=== PATIENT | female | born 1965 | race American Indian/Alaskan Native ===

== ENCOUNTER 2018-06-06 19:06 | Emergency (ER) | payer MEDICAID, OTHER ==
[2018-06-06 19:20] VITALS: BMI 38.4
[2018-06-06 19:21] VITALS: TEMP 97.9; O2SAT 98
--- NOTE | 2018-06-06 19:51 | ED PDOC ---
Arrival/HPI - General Chief Complaint: Upper Extremity Problem/Injury Time Seen by Provider: 06/06/18 19:20 Historian: Patient - History of Present Illness Narrative History of Present Illness (Text): 06/06/18 19:51 53 year old female, with no significant past medical history, presents to emergency department complaining of right shoulder discomfort that began earlier today. Patient states that the shoulder hurts when she raises her arm or moves at the shoulder. She reports she may have slept awkwardly on the affected area. Patient denies any blunt trauma to shoulder or any other complaints. Time/Duration: Other (earlier today ) Symptom Onset: Gradual Symptom Course: Unchanged Activities at Onset: Light Context: Home Past Medical History - Provider Review Nursing Documentation Reviewed: Yes - Infectious Disease Hx of Infectious Diseases: None - Tetanus Immunization Tetanus Immunization: Unknown - Past Medical History Past Medical History: No Previous - Cardiac Hx Peripheral Vascular Disease: No - Pulmonary Hx Respiratory Disorders: No - Neurological Hx Dizziness: Yes (Fell april 2014) - Renal Hx Renal Failure: No - Musculoskeletal/Rheumatological Hx Falls: Yes - Gastrointestinal Hx Vomiting: Yes (FOOD POISONING) - Genitourinary/Gynecological Hx Urinary Tract Infection: No - Psychiatric Hx Psychophysiologic Disorder: Yes Hx Anxiety: Yes Hx Depression: No Hx Emotional Abuse: No Hx Hallucinations: No Hx Panic Disorder: No Hx Post Traumatic Stress Disorder: No Hx Psychosis: No Hx Physical Abuse: No Hx Schizophrenia: No Hx Sexual Abuse: No Hx Substance Use: No - Surgical History Hx Section: Yes (x 2) Hx Orthopedic Surgery: Yes (LEFT KNEE, RIGHT FOOT) - Anesthesia Hx Anesthesia: Yes Hx Anesthesia Reactions: No Hx Malignant Hyperthermia: No - Suicidal Assessment Feels Threatened In Home Enviroment: No Family/Social History - Physician Review Nursing Documentation Reviewed: Yes Family/Social History: Unknown Family HX Smoking Status: Never Smoked Hx Alcohol Use: Yes Hx Substance Use: No Hx Substance Use Treatment: No Allergies/Home Meds Allergies/Adverse Reactions: Allergies amoxicillin Allergy (Verified 06/06/18 19:20) DIARRHEA Review of Systems - Physician Review All systems were reviewed & negative as marked: Yes - Review of Systems Constitutional: absent: Fevers Respiratory: absent: SOB, Cough Cardiovascular: absent: Chest Pain Gastrointestinal: absent: Abdominal Pain, Nausea, Vomiting Genitourinary Female: absent: Urine Output Changes Musculoskeletal: Other (right shoulder discomfort ). absent: Back Pain, Neck Pain Skin: absent: Rash Neurological: absent: Headache Physical Exam Vital Signs Reviewed: Yes Vital Signs Temp Pulse Resp BP Pulse Ox 06/06/18 19:21 97.9 F 71 18 169/81 H 98 Temperature: Afebrile Blood Pressure: Normal Pulse: Regular Respiratory Rate: Normal Appearance: Positive for: Well-Appearing, Non-Toxic, Comfortable Pain Distress: None Mental Status: Positive for: Alert and Oriented X 3 - Systems Exam Head: Present: Atraumatic, Normocephalic Pupils: Present: PERRL Extroacular Muscles: Present: EOMI Conjunctiva: Present: Normal Mouth: Present: Moist Mucous Membranes Neck: Present: Normal Range of Motion Respiratory/Chest: Present: Clear to Auscultation, Good Air Exchange. No: Respiratory Distress, Accessory Muscle Use Cardiovascular: Present: Regular Rate and Rhythm, Normal S1, S2. No: Murmurs Abdomen: No: Tenderness, Distention, Peritoneal Signs Back: Present: Normal Inspection Upper Extremity: Present: Normal ROM, Tenderness (palpable tenderness to right anterior shoulder with pain on right shoulder abduction), Neurovascularly Intact. No: Cyanosis, Edema Lower Extremity: Present: Normal Inspection. No: Edema Neurological: Present: GCS=15, CN II-XII Intact, Speech Normal Skin: Present: Warm, Dry, Normal Color. No: Rashes Psychiatric: Present: Alert, Oriented x 3, Normal Insight, Normal Concentration Medical Decision Making ED Course and Treatment: 06/06/18 19:57 Impression: 53 year old female presents to emergency department complaining of right shoulder discomfort since earlier today. Plan: -- X-ray right shoulder -- Toradol -- Reassess and disposition Prior Visits: Notes and results from previous visits were reviewed. Progress Notes: 06/06/18 21:12: Right shoulder x- ray read and interpreted by me shows no acute process. - RAD Interpretation Radiology Orders: 06/06/18 19:39 SHOULDER RIGHT [RAD] Stat - Medication Orders Current Medication Orders: Discontinued Medications Ketorolac Tromethamine (Toradol) 60 mg IM ONCE ONE Stop: 06/06/18 19:41 - Scribe Statement The provider has reviewed the documentation as recorded by the Scribe Greg Shelton All medical record entries made by the Scribe were at my direction and personally dictated by me. I have reviewed the chart and agree that the record accurately reflects my personal performance of the history, physical exam, medical decision making, and the department course for this patient. I have also personally directed, reviewed, and agree with the discharge instructions and disposition. Disposition/Present on Arrival - Present on Arrival Any Indicators Present on Arrival: No History of DVT/PE: No History of Uncontrolled Diabetes: No Urinary Catheter: No History of Decub. Ulcer: No History Surgical Site Infection Following: None - Disposition Have Diagnosis and Disposition been Completed?: Yes Diagnosis: Shoulder bursitis Disposition: HOME/ ROUTINE Disposition Time: 21:22 Patient Plan: Discharge Condition: GOOD Discharge Instructions (ExitCare): Shoulder Bursitis (DC) Additional Instructions: Take meds as prescribed/follow up with the orthopedist this week Prescriptions: Ketorolac Tromethamine [Toradol] 10 mg PO TID PRN #12 tab PRN Reason: Pain, Moderate (4-7) Referrals: Ishaan Brooks MD [Staff Provider] - Follow up with primary Forms: [facility] (Yakut), WORK NOTE
[2018-06-06 21:41] VITALS: BP 146/89; PULSE 72; RESP 16
--- NOTE | 2018-06-06 21:56 | RAD ---
PROCEDURE: Radiographs of the Right Shoulder, three views HISTORY: pain/palpable tenderness COMPARISON: None available. FINDINGS: Examination limited by habitus. BONES: No acute displaced fracture. The distal clavicle and underlying ribs appear intact. JOINTS: No acute dislocation. Acromioclavicular arthropathy. Narrowing of the glenohumeral joint space. SOFT TISSUES: Soft tissues appear unremarkable. No evidence of radiopaque foreign body. IMPRESSION: No acute displaced fracture or dislocation evident. If symptoms persist or if there is continued clinical concern, x-ray follow-up in 7-10 days should be considered.
== END 2018-06-06 21:40 | disposition home or self-care (01) ==
LOC: ED 19:06
DX: M75.51 Bursitis of right shoulder (principal)
CPT/HCPCS: 73030; 96372; 99284; J1885; L3650